=== PATIENT | female | born 1990 | race Caucasian/White ===

== ENCOUNTER 2022-04-09 11:04 | Emergency (ER) | payer OTHER ==
--- OUTSIDE RECORDS SUMMARY | 2022-04-09 11:08 | XMS REPORT | Continuity of Care Document ---
:1990 Author Organization [facility] t Address [address] [place] [address] Dr. Jarvis [address] [place] [id number] Care Team Providers Name Role Phone Unavailable Unavailable Unavailable Problems This patient has no known problems. Allergies, Adverse Reactions, Alerts This patient has no known allergies or adverse reactions. Medications This patient has no known medications. Procedures This patient has no known procedures. Results This patient has no known results.
[2022-04-09] MEDS ORDERED: IBUPROFEN 200 MG TAB PO ONE (11:26)
[2022-04-09] MEDS ORDERED: HYDROCODONE/APAP 5/325 MG TAB ONE (11:26)
[2022-04-09] MEDS ORDERED: IBUPROFEN 400 MG TAB ONE (11:27)
--- NOTE | 2022-04-09 12:18 | RAD REPORT ---
EXAM DESCRIPTION: RAD - Knee Right 3 View - 04/09/2022 12:05 pm CLINICAL HISTORY: PAIN COMPARISON: No comparisons FINDINGS/IMPRESSION: Possible nondisplaced lateral tibial plateau fracture. A knee effusion is prese nt. Consider CT for confirmation.
--- NOTE | 2022-04-09 12:40 | ER ---
Nurse's Notes [facility] Name: Lynn Rodriguez Age: 31 yrs Sex: Female : 1990 Arrival Date: 04/09/2022 Time: 11:07 Bed 9 Private MD: Diagnosis: Nondisplaced right tibeal plateau fracture Presentation: 04/09 11:16 Chief complaint: Patient states: Tripped and fell onto right knee. Pt reporting pain to ld1 right knee. Coronavirus screen: At this time, the client does not indicate any symptoms associated with coronavirus-19. Ebola Screen: No symptoms or risks identified at this time. Initial Sepsis Screen: Does the patient meet any 2 criteria? No. Patient's initial sepsis screen is negative. Does the patient have a suspected source of infection? No. Patient's initial sepsis screen is negative. Risk Assessment: Do you want to hurt yourself or someone else? Patient reports no desire to harm self or others. Onset of symptoms was April 09, 2022. 11:16 Method Of Arrival: Wheelchair ld1 11:16 Acuity: JOANIE 4 ld1 Triage Assessment: 11:17 General: Appears in no apparent distress. comfortable, Behavior is calm, cooperative, ld1 appropriate for age. Pain: Complains of pain in right knee Pain does not radiate. Pain currently is 8 out of 10 on a pain scale. Quality of pain is described as throbbing, Pain began suddenly, Is intermittent. EENT: No signs and/or symptoms were reported regarding the EENT system. Neuro: Level of Consciousness is awake, alert, obeys commands, Oriented to person, place, time, situation. Cardiovascular: Capillary refill < 3 seconds Patient's skin is warm and dry. Respiratory: Airway is patent Respiratory effort is even, unlabored. GI: Abdomen is flat, non-distended. : No signs and/or symptoms were reported regarding the genitourinary system. 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 - Social history:: Smoking status: Patient reports the use of cigarette tobacco products, smokes one-half pack cigarettes per day, Patient uses alcohol, occasionally. Screenin:41 Abuse screen: Denies threats or abuse. Denies injuries from another. Nutritional ph screening: No deficits noted. Tuberculosis screening: No symptoms or risk factors identified. Fall Risk None identified. Assessment: 11:42 General: Appears in no apparent distress. uncomfortable, Behavior is calm, cooperative, ph appropriate for age. Pain: Complains of pain in right knee. Neuro: Child Agitation-Sedation Scale (RASS): +1 Restless Level of Consciousness is awake, alert, obeys commands, Oriented to person, place, time, situation. Cardiovascular: Capillary refill < 3 seconds Patient's skin is warm and dry. Respiratory: Airway is patent is compromised Respiratory effort is even, unlabored, Respiratory pattern is regular, symmetrical. Derm: Skin is healthy with good turgor, Skin is pink, warm \T\ dry. Musculoskeletal: Circulation, motion, and sensation intact. Range of motion: intact in all extremities, Swelling present in right knee. Vital Signs: 11:16 BP 119 / 76; Pulse 86; Resp 18; Temp 97.4; Pulse Ox 100% ; Weight 61.23 kg; Height 4 ld1 ft. 11 in. (149.86 cm); Pain 8/10; 13:42 BP 127 / 70; Pulse 81; Resp 18; Temp 98.0; Pulse Ox 99% on R/A; ph 11:16 Body Mass Index 27.26 (61.23 kg, 149.86 cm) ld1 ED Course: 11:07 Patient arrived in ED. mr 11:09 Emilee Caro FNP-C is PHCP. kb 11:09 Price Gonzalez MD is Attending Physician. kb 11:17 Triage completed. ld1 11:17 Arm band placed on right wrist. ld1 11:23 Jasmina Garcia, DAVID is Primary Nurse. ph 11:42 Patient has correct armband on for positive identification. Bed in low position. Call ph light in reach. Side rails up X 1. Door closed. Noise minimized. Warm blanket given. Pillow given. 12:06 Knee Right 3 View XRAY In Process Unspecified. EDMS 13:40 Crutch training done. Knee immobilizer applied on right knee. ph 13:40 No provider procedures requiring assistance completed. Patient did not have IV access ph during this emergency room visit. Administered Medications: 11:27 Drug: HYDROcodone-acetaminophen 5 mg-325 mg 1 tabs Route: PO; ph 12:50 Follow up: Response: No adverse reaction ph 11:27 Drug: Ibuprofen 600 mg Route: PO; ph 12:50 Follow up: Response: No adverse reaction ph Medication: 11:42 VIS not applicable for this client. ph Outcome: 12:39 Discharge ordered by . kb 13:41 Discharged to home via wheelchair, with crutches, with significant other. ph 13:41 Condition: good 13:41 Discharge instructions given to patient, Instructed on discharge instructions, follow up and referral plans. medication usage, crutch walking, Demonstrated understanding of instructions, follow-up care, medications, crutch walking, Prescriptions given X 1. 13:42 Patient left the ED. ph Signatures: Dispatcher [employer] EDMS Emilee Caro, CHRIS MARKETING INFORMATION ANALYST-Sonal Cummings mr Jasmina Garcia RN RN Amina Burton RN RN ld1 Corrections: (The following items were deleted from the chart) 11:19 11:16 Pulse 86bpm; Resp 18bpm; Pulse Ox 100%; Temp 97.4F; 61.23 kg; Height 4 ft. 11 ld1 in.; BMI: 27.2; Pain 8/10; ld1
--- NOTE | 2022-04-09 12:40 | EDPHYS ---
Physician Documentation [facility] Name: Lynn Rodriguez Age: 31 yrs Sex: Female : 1990 Arrival Date: 04/09/2022 Time: 11:07 Bed 9 Private MD: ED Physician Price Gonzalez HPI: 04/09 11:52 This 31 yrs old Female presents to ER via Wheelchair with complaints of Fall Injury, kb Knee Injury. 11:52 Details of fall: The patient fell from an upright position, while standing. Onset: The kb symptoms/episode began/occurred just prior to arrival. Associated injuries: The patient sustained right knee, painful injury, swelling. Severity of symptoms: At their worst the symptoms were moderate, in the emergency department the symptoms are unchanged. The patient has not experienced similar symptoms in the past. The patient has not recently seen a physician. Pt reports she tripped and fell onto right knee. c/o pain and swelling. 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 - Social history:: Smoking status: Patient reports the use of cigarette tobacco products, smokes one-half pack cigarettes per day, Patient uses alcohol, occasionally. ROS: 11:48 Constitutional: Negative for fever, chills, and weight loss. kb 11:48 MS/extremity: Positive for pain, swelling, tenderness, of the right knee. 11:48 All other systems are negative. Exam: 11:48 Constitutional: This is a well developed, well nourished patient who is awake, alert, kb and in no acute distress. Head/Face: Normocephalic, atraumatic. ENT: Moist Mucous membranes Respiratory: Respirations even and unlabored. No increased work of breathing. Talking in full sentences Skin: Warm, dry with normal turgor. Normal color. Neuro: Awake and alert, GCS 15, oriented to person, place, time, and situation. Moves all extremities. Normal gait. Psych: Awake, alert, with orientation to person, place and time. Behavior, mood, and affect are within normal limits. 11:48 Musculoskeletal/extremity: Extremities: grossly normal except: noted in the right knee: pain, swelling, tenderness, ROM: limited active range of motion due to pain, in the right knee, Circulation is intact in all extremities. Sensation intact. Weight bearing: can bear weight with assistance only. Vital Signs: 11:16 BP 119 / 76; Pulse 86; Resp 18; Temp 97.4; Pulse Ox 100% ; Weight 61.23 kg; Height 4 ld1 ft. 11 in. (149.86 cm); Pain 8/10; 13:42 BP 127 / 70; Pulse 81; Resp 18; Temp 98.0; Pulse Ox 99% on R/A; ph 11:16 Body Mass Index 27.26 (61.23 kg, 149.86 cm) ld1 MDM: 11:18 Patient medically screened. kb 11:52 Data reviewed: vital signs, nurses notes. Data interpreted: Pulse oximetry: on room air kb is 100 %. Interpretation: normal. 12:39 Counseling: I had a detailed discussion with the patient and/or guardian regarding: the kb historical points, exam findings, and any diagnostic results supporting the discharge/admit diagnosis, radiology results, the need for outpatient follow up, a orthopedic surgeon, to return to the emergency department if symptoms worsen or persist or if there are any questions or concerns that arise at home. 04/09 11:18 Order name: Knee Right 3 View XRAY; Complete Time: 12:19 kb 04/09 12:29 Order name: Knee Immobilizer; Complete Time: 13:29 kb 04/09 12:29 Order name: Crutches; Complete Time: 13:29 kb Administered Medications: 11: Drug: HYDROcodone-acetaminophen 5 mg-325 mg 1 tabs Route: PO; ph 12:50 Follow up: Response: No adverse reaction ph 11:27 Drug: Ibuprofen 600 mg Route: PO; ph 12:50 Follow up: Response: No adverse reaction ph Disposition Summary: 04/09/22 12:39 Discharge Ordered Location: Home Condition: Stable kb Diagnosis - Nondisplaced right tibeal plateau fracture kb Followup: kb - With: Emergency Department - When: As needed - Reason: Worsening of condition Followup: kb - With: Private Physician - When: 2 - 3 days - Reason: Recheck today's complaints, Continuance of care, Re-evaluation by your physician Discharge Instructions: - Discharge Summary Sheet kb - Tibial Plateau Fracture Treated With ORIF kb - Tibial Plateau Fracture Rehab-SportsMed kb Forms: - Medication Reconciliation Form kb - Thank You Letter kb - Antibiotic Education kb - Prescription Opioid Use kb - Work release form ph - Family Work Release ph Prescriptions: - Diclofenac Sodium 75 mg Oral tablet,delayed release (DR/EC) - take 1 tablet by ORAL route 2 times per day As needed; 30 tablet; Refills: 0, kb Product Selection Permitted Signatures: Dispatcher [employer] EDEmilee Bright, FISH WARDEN-C SAVANA-Jasmina Go, RN RN Amina Burton RN RN ld1
[2022-04-09 13:55] VITALS: BP 127/70; TEMP 98; O2SAT 99
== END 2022-04-09 13:42 | disposition home or self-care (01) ==
LOC: ER 11:04
DX: S82.144A Nondisplaced bicondylar fracture of right tibia, initial encounter for closed fracture (principal); F17.210 Nicotine dependence, cigarettes, uncomplicated
CPT/HCPCS: 99284